=== PATIENT | female | born 1970 ===

== ENCOUNTER → 2018-08-07 21:43 | Outpatient (REF) | payer OTHER, SELFPAY ==
[2018-08-07 22:56] LABS: Alanine Aminotransferase 17 IU/L (9-52); Albumin 3.8 g/dL (3.5-5.0); Albumin Globulin Ratio 1.4 (1.0-2.8); Alkaline Phosphatase 53 U/L (38-126); Aspartate Aminotransferase 19 IU/L (14-36); BUN Creatinine Ratio 16.7 (6-22); Bilirubin Total 0.3 mg/dL (0.2-1.3); Blood Urea Nitrogen 10 mg/dL (7-17); Calcium 9.2 mg/dL (8.4-10.2); Carbon Dioxide 25 mmol/L (22-32); Chloride 106 mmol/L (98-107); Cholesterol 169 mg/dL (140-199); Estimated Glomerular Filt Rate > 60.0 mL/min (>60); Globulin 2.7 g/dL (1.7-4.1); Glucose 88 mg/dL (70-100); HDL Cholesterol 61 mg/dL (40-60); HEMOLYSIS < 15 (0-50); LDL Cholesterol Calculated 86 mg/dL (<100); Potassium 4.2 mmol/L (3.4-5.1); Sodium 141 mmol/L (137-145); Total Protein 6.5 g/dL (6.3-8.2); Triglycerides 110 mg/dL (35-150)
[2018-08-07 23:00] LABS: Add Manual Diff / Slide Review NO; Basophils Percent Auto 0.6 % (0-2); Eosinophils Percent Auto 2.1 % (2-4); Hematocrit 33.5 % (36-46); Hemoglobin 11.3 g/dL (12.0-16.0); Lymphocytes Percent Auto 22.5 % (25-40); Mean Corpuscular HGB Conc 33.8 % (30-36); Mean Corpuscular Hemoglobin 30.6 PG (26-34); Mean Corpuscular Volume 90.6 fL (80-100); Monocytes Percent Auto 7.7 % (3-14); Neutrophils Absolute Auto 5000 /uL (1500-7000); Neutrophils Percent Auto 67.1 % (50-75); Platelet Count 263 X10^3/uL (150-400); Red Cell Distribution Width 13.2 % (11.6-14.8); White Blood Cell Count 7.5 X10^3/uL (4.5-11.0)
[2018-08-07 23:30] LABS: Ferritin 16.6 ng/mL (11.1-264)
[2018-08-08 01:27] LABS: HEMOLYSIS < 15 (0-50); Iron 77 ug/dL (37-170)
[2018-08-08 01:41] LABS: Percent Iron Saturation 24 % (15-50); Total Iron Binding Capacity 321 ug/dL (265-497); Transferrin 257 mg/dL (206-381)
[2018-08-08 01:50] LABS: Free T4, Direct Thyroxine 0.86 ng/dL (0.78-2.19)
[2018-08-08 02:03] LABS: Thyroid Stimulating Hormone 0.34 uIU/mL (0.47-4.68)
[2018-08-11 18:17] LABS: Triiodothyronine T3 Total 97 ng/dL (76-181)
== END ==
LOC: LAB 21:43
PROVIDERS: Visit Provider Family Medicine
DX: Z00.00 Encounter for general adult medical examination without abnormal findings (principal); Z13.220 Encounter for screening for lipoid disorders; E03.9 Hypothyroidism, unspecified
CPT/HCPCS: 36415; 80053; 80061; 82728; 83540; 83550; 84439; 84443; 84480; 85025

== ENCOUNTER → 2018-12-09 21:24 | Outpatient (REF) | payer OTHER, SELFPAY ==
[2018-12-09 23:21] LABS: HEMOLYSIS < 15 (0-50); Iron 126 ug/dL (37-170)
[2018-12-09 23:34] LABS: Percent Iron Saturation 28 % (15-50); Total Iron Binding Capacity 451 ug/dL (265-497); Transferrin 353 mg/dL (206-381)
[2018-12-09 23:45] LABS: Free T3, Triiodothyronine Free 3.22 pg/mL (2.77-5.27); Free T4, Direct Thyroxine 1.08 ng/dL (0.78-2.19)
[2018-12-09 23:46] LABS: Prolactin 9.1 ng/mL (3.0-18.6)
== END ==
LOC: LAB 21:24
PROVIDERS: Visit Provider Family Medicine
DX: E03.9 Hypothyroidism, unspecified (principal); D35.2 Benign neoplasm of pituitary gland; N97.0 Female infertility associated with anovulation; E61.1 Iron deficiency
CPT/HCPCS: 36415; 82728; 83540; 83550; 84146; 84439; 84443; 84481

== ENCOUNTER → 2019-01-08 21:28 | Outpatient (ROUT) | payer OTHER, SELFPAY ==
[2019-01-09 00:13] LABS: Add Manual Diff / Slide Review NO; Basophils Absolute Auto 0 /uL (0-100); Basophils Percent Auto 0.5 % (0-2); Eosinophils Absolute Auto 100 /uL (0-450); Hematocrit 36.9 % (36-46); Hemoglobin 12.2 g/dL (12.0-16.0); Lymphocytes Absolute Auto 2400 /uL (1100-4500); Lymphocytes Percent Auto 31.1 % (25-40); Mean Corpuscular HGB Conc 33.1 % (30-36); Mean Corpuscular Volume 90.6 fL (80-100); Monocytes Absolute Auto 600 /uL (0-900); Monocytes Percent Auto 7.5 % (3-14); Neutrophils Absolute Auto 4700 /uL (1500-7000); Neutrophils Percent Auto 59.9 % (50-75); Platelet Count 364 X10^3/uL (150-400); Red Blood Cell Count 4.07 X10^6/uL (4.0-5.2); White Blood Cell Count 7.8 X10^3/uL (4.5-11.0)
[2019-01-11 15:36] LABS: ANA Screen, IFA Negative (Negative)
== END ==
PROVIDERS: Visit Provider Family Medicine
DX: N97.0 Female infertility associated with anovulation (principal)
CPT/HCPCS: 36415; 85025; 86038